=== PATIENT | female | born 1975 | race Caucasian/White ===

== ENCOUNTER 2016-12-02 16:07 | Emergency (ER) | payer OTHER ==
[~2016-12-02] VITALS: Ht 160 cm; Wt 87.6 kg
[~2016-12-02 16:07] MED LIST: ADVAIR HFA120 INHAL1 IH; ADVAIR HFA120 INHALA IH; ALEVE220 M2 PO; ALPRAZOLAM1 MG PO; AMOXICILLIN875 MG PO; AUGMENTIN875 MG PO; BACTRIM,SEPT1 TABLET PO; BENZONATATE100 MG PO; CEPACOL SORE T1 EAC9 MM; CYCLOBENZAPRINE10 MG PO; EFFEXOR; EFFEXOR XR150 MG PO; ENDOCET 5-3251 EACH PO; FLEXERIL10 MG PO; FLEXERIL5 MG PO; FLONASE16 G1 BOTH NARES; GABAPENTIN100 MG PO; GEODON40 MG PO; GUAIFENESIN600 M1 PO; HYDROCODON-ACE1 EAC7 PO; IBUPROFEN800 MG PO; INDOCIN25 MG PO; KEFLEX500 MG PO; KLONOPIN0.5 MG PO; KLONOPIN1 M1 PO; LAMICTAL100 MG PO; LAMICTAL200 MG PO; LAMOTRIGINE100 MG PO; LEVAQUIN500 MG PO; LEVOFLOXACIN750 MG PO; LIDOCAINE20 MG/1 M5 PO; LITHIUM CARBON300 MG PO; LITHIUM CARBON450 MG PO; LITHIUM CARBON600 MG PO; MACROBID100 MG PO; MOBIC15 MG PO; MORPHINE SULFAT15 MG PO; MS CONTIN,ORAMO15 M1 PO; NAPROSYN500 MG PO; NEURONTIN100 MG PO; NEURONTIN300 MG PO; NEURONTIN600 MG PO; NEXIUM40 M1 PO; NEXIUM40 MG PO; NICOTINE PATCH1 EAC2 TD; NORCO 5/3251 TABLET PO; OMEPRAZOLE20 MG PO; OMEPRAZOLE40 M1 PO; PRAVACHOL40 MG PO; PRAVASTATIN SOD40 MG PO; PREDNISONE10 MG PO; PREDNISONE20 MG PO; PREDNISONE5 MG PO; PROAIR HFA8.5 GM IH; PROVENTIL,2.5 MG/3 M IH; QUETIAPINE FUMA50 MG PO; SEROQUEL100 MG PO; SEROQUEL300 MG PO; SEROQUEL50 MG PO; SPIRIVA RESPIMAT4 G1 IH; SPIRIVA RESPIMAT4 GM IH; SYMBICORT60 INHALA1 IH; TESSALON200 MG PO; TOPAMAX50 MG PO; TRAMADOL HCL50 MG PO; ULTRAM50 MG PO; VENLAFAXINE HC150 M1 PO; VENTOLIN HFA18 GM IH; VICODIN 5-3001 EACH PO; XANAX0.5 MG PO; XANAX1 MG PO; XANAX2 MG PO; ZIPRASIDONE HCL40 MG PO; prevacid
[2016-12-02 17:04] LABS: HEMATOCRIT 40.5 % (36.0-46.0); MCH 30.1 PG (29.0-34.0); MCHC 34.1 G/DL (30.0-36.0); MCV 88.2 FL (83-99); MEAN PLAT.VOLUME 9.9 uM^3 (9.5-12.4); PLATELET COUNT 357 K/uL (156-360); RBC DIS.WIDTH-CV 14.1 % (11.8-14.6); RBC DIS.WIDTH-SD 45.3 % (39-53); RED BLOOD COUNT 4.59 M/uL (3.80-5.20); WHITE BLOOD COUNT 12.5 K/uL (4.1-10.2)
[2016-12-02 17:13] LABS: CHLORIDE 111 mEq/L (99-109); POTASSIUM 3.6 mEq/L (3.7-5.4); SODIUM 137 mEq/L (136-147)
[2016-12-02 17:14] LABS: GLUCOSE 81 mg/dL (70-99)
[2016-12-02 17:16] LABS: ANION GAP 12 MEQ/L (2-14)
[2016-12-02 17:18] LABS: GFR ESTIMATE (CALCULATED) > 59 mL/min/
[2016-12-02 17:19] LABS: UREA NITROGEN (BUN) 13 mg/dL (9-23)
[2016-12-02 17:25] LABS: TROP-I INTERPRETATION NEGATIVE; TROPONIN-I < 0.01 ng/mL (0.0-0.30)
[2016-12-02 17:40] LABS: D-DIMER ELISA 0.42 mg/L FEU (< 0.57)
[2016-12-02] MEDS ORDERED: PREDNISONE50 MG PO (18:44)
[2016-12-02 18:54] VITALS: BP 117/88
== END 2016-12-02 18:54 | disposition home or self-care (01) ==
LOC: EME 16:07
PROVIDERS: Emergency Medicine
DX: J44.1 Chronic obstructive pulmonary disease with (acute) exacerbation (principal); F41.1 Generalized anxiety disorder; E78.5 Hyperlipidemia, unspecified; Z99.81 Dependence on supplemental oxygen; Z87.891 Personal history of nicotine dependence
CPT/HCPCS: 71020; 80048; 84484; 85027; 85379; 93005; 94640; 99281; 99284; J7512

== ENCOUNTER 2017-01-03 15:42 | Inpatient (IN) | payer OTHER ==
[~2017-01-03] VITALS: Ht 160 cm; Wt 89.4 kg
[~2017-01-03 15:42] MED LIST changes: +PREDNISONE50 MG PO
[2017-01-03 18:31] LABS: HEMATOCRIT 39.7 % (36.0-46.0); MCH 29.6 PG (29.0-34.0); MCHC 32.2 G/DL (30.0-36.0); MCV 91.9 FL (83-99); PLATELET COUNT 282 K/uL (156-360); RBC DIS.WIDTH-CV 13.9 % (11.8-14.6); RBC DIS.WIDTH-SD 45.4 % (39-53); RED BLOOD COUNT 4.32 M/uL (3.80-5.20)
[2017-01-03 18:35] LABS: WHITE BLOOD COUNT 22.6 K/uL (4.1-10.2)
[2017-01-03 18:40] LABS: CHLORIDE 108 mEq/L (99-109); POTASSIUM 3.2 mEq/L (3.7-5.4); SODIUM 140 mEq/L (136-147)
[2017-01-03 18:42] LABS: GLUCOSE 125 mg/dL (70-99)
[2017-01-03 18:43] LABS: ANION GAP 12 MEQ/L (2-14)
[2017-01-03 18:46] LABS: GFR ESTIMATE (CALCULATED) > 59 mL/min/
[2017-01-03 18:47] LABS: UREA NITROGEN (BUN) 13 mg/dL (9-23)
[2017-01-03] MEDS ORDERED: LITHIUM CARBON300 MG PO (21:56)
[2017-01-03] MEDS ORDERED: VENTOLIN HFA18 GM IH (21:59)
[2017-01-03] MEDS ORDERED: COLACE100 MG PO (22:02)
[2017-01-03] MEDS ORDERED: PREDNISONE50 MG PO (22:04)
[2017-01-03] MEDS ORDERED: ZANTAC300 MG PO (22:07)
[2017-01-03 22:14] LABS: BASE EXCESS -2.8 mEq/L (-3 to +3); BICARBONATE 19.1 mEq/L (22-26); CARBOXY HGB 1.9 % (0-5); COMMENTS - BLOOD GASES A+C+; DEVICE RA; METHEMOGLOBIN 1.1 % (0-1.5); PCO2 25 mm Hg (35-45); PO2 81 mm Hg (80-100); SITE LR; TOTAL RESP RATE 20 resp/min; pH 7.49 (7.35-7.45)
[2017-01-04 00:23] VITALS: BP 136/82
[2017-01-04 07:36] VITALS: BP 137/91
[2017-01-04 08:07] LABS: HEMATOCRIT 38.8 % (36.0-46.0); MCH 30.6 PG (29.0-34.0); MCHC 33.2 G/DL (30.0-36.0); MCV 91.9 FL (83-99); MEAN PLAT.VOLUME 10.5 uM^3 (9.5-12.4); PLATELET COUNT 315 K/uL (156-360); RED BLOOD COUNT 4.22 M/uL (3.80-5.20)
[2017-01-04 08:32] LABS: ANION GAP 9 MEQ/L (2-14); CHLORIDE 107 MEQ/L (99-109); GFR ESTIMATE (CALCULATED) > 59 mL/min/; GLUCOSE 158 mg/dL (70-99); SAMPLE HEMOLYSIS CHECK 2; SAMPLE ICTERIC CHECK 0; SAMPLE LIPEMIA CHECK 0; SODIUM 135 MEQ/L (136-147); UREA NITROGEN (BUN) 13 mg/dL (9-23)
[2017-01-04 08:33] LABS: POTASSIUM ND MEQ/L (3.7-5.4)
[2017-01-04 11:41] LABS: POTASSIUM 5.5 MEQ/L (3.7-5.4)
[2017-01-04 11:49] VITALS: BP 117/64
[2017-01-04 14:26] LABS: ANION GAP 7 MEQ/L (2-14); CHLORIDE 109 MEQ/L (99-109); GFR ESTIMATE (CALCULATED) > 59 mL/min/; GLUCOSE 140 mg/dL (70-99); POTASSIUM 5.2 MEQ/L (3.7-5.4); SAMPLE HEMOLYSIS CHECK 0; SAMPLE ICTERIC CHECK 0; SAMPLE LIPEMIA CHECK 0; SODIUM 136 MEQ/L (136-147); UREA NITROGEN (BUN) 14 mg/dL (9-23)
[2017-01-04 15:36] VITALS: BP 107/58
[2017-01-04 19:42] VITALS: BP 131/84
[2017-01-05 00:42] VITALS: BP 121/69
[2017-01-05 03:58] VITALS: BP 125/74
[2017-01-05 08:25] VITALS: BP 107/59
[2017-01-05 08:35] LABS: HEMATOCRIT 38.2 % (36.0-46.0); MCHC 31.7 G/DL (30.0-36.0); MCV 94.6 FL (83-99); MEAN PLAT.VOLUME 11.2 uM^3 (9.5-12.4); PLATELET COUNT 317 K/uL (156-360); RBC DIS.WIDTH-CV 14.7 % (11.8-14.6); RBC DIS.WIDTH-SD 51.1 % (39-53); RED BLOOD COUNT 4.04 M/uL (3.80-5.20); WHITE BLOOD COUNT 16.2 K/uL (4.1-10.2)
[2017-01-05 08:56] LABS: ANION GAP 8 MEQ/L (2-14); CHLORIDE 108 MEQ/L (99-109); GFR ESTIMATE (CALCULATED) > 59 mL/min/; GLUCOSE 130 mg/dL (70-99); POTASSIUM 5.4 MEQ/L (3.7-5.4); SAMPLE HEMOLYSIS CHECK 0; SAMPLE ICTERIC CHECK 0; SAMPLE LIPEMIA CHECK 0; SODIUM 138 MEQ/L (136-147); UREA NITROGEN (BUN) 21 mg/dL (9-23)
[2017-01-05 12:20] VITALS: BP 123/66
[2017-01-05 16:00] VITALS: BP 123/67
[2017-01-05 21:55] VITALS: BP 129/66
[2017-01-06] VITALS: BP 119/68
[2017-01-06 04:00] VITALS: BP 129/65
[2017-01-06 07:45] VITALS: BP 110/65
[2017-01-06 08:06] LABS: ANION GAP 5 MEQ/L (2-14); CHLORIDE 108 MEQ/L (99-109); POTASSIUM 4.4 MEQ/L (3.7-5.4); SAMPLE HEMOLYSIS CHECK 0; SAMPLE ICTERIC CHECK 0; SAMPLE LIPEMIA CHECK 0; SODIUM 140 MEQ/L (136-147)
[2017-01-06 08:26] LABS: GFR ESTIMATE (CALCULATED) 53 mL/min/; UREA NITROGEN (BUN) 31 mg/dL (9-23)
[2017-01-06 08:32] LABS: GLUCOSE 87 mg/dL (70-99)
[2017-01-06 15:03] VITALS: BP 121/73
[2017-01-06 20:00] VITALS: BP 122/62
[2017-01-07] VITALS: BP 108/58
[2017-01-07 03:46] VITALS: BP 112/67
[2017-01-07 08:43] VITALS: BP 136/89
[2017-01-07] MEDS ORDERED: PERCOCET 5/31 TABLET PO (11:45)
[2017-01-07] MEDS ORDERED: VALACYCLOVIR (11:47)
[2017-01-07 12:35] VITALS: BP 138/87
[2017-01-07 15:00] VITALS: BP 146/95
[2017-01-08] VITALS: BP 109/72
[2017-01-08 04:00] VITALS: BP 117/75
[2017-01-08 08:16] VITALS: BP 161/95
[2017-01-08 10:49] LABS: HEMATOCRIT 41.4 % (36.0-46.0); MCH 29.1 PG (29.0-34.0); MCHC 31.2 G/DL (30.0-36.0); MCV 93.5 FL (83-99); MEAN PLAT.VOLUME 10.8 uM^3 (9.5-12.4); PLATELET COUNT 271 K/uL (156-360); RBC DIS.WIDTH-CV 13.6 % (11.8-14.6); RED BLOOD COUNT 4.43 M/uL (3.80-5.20); WHITE BLOOD COUNT 12.5 K/uL (4.1-10.2)
[2017-01-08 11:12] LABS: ANION GAP 10 MEQ/L (2-14); CHLORIDE 104 MEQ/L (99-109); GFR ESTIMATE (CALCULATED) > 59 mL/min/; GLUCOSE 122 mg/dL (70-99); POTASSIUM 3.6 MEQ/L (3.7-5.4); SAMPLE HEMOLYSIS CHECK 0; SAMPLE ICTERIC CHECK 0; SAMPLE LIPEMIA CHECK 0; SODIUM 138 MEQ/L (136-147); UREA NITROGEN (BUN) 19 mg/dL (9-23)
[2017-01-08 12:13] VITALS: BP 122/79
[2017-01-08] MEDS ORDERED: SPIRIVA RESPIMAT4 GM IH (13:32)
[2017-01-08] MEDS ORDERED: LEVOFLOXACIN750 MG PO (13:32)
[2017-01-08] MEDS ORDERED: ADVAIR HFA120 INHALA IH (13:32)
[2017-01-08] MEDS ORDERED: PREDNISONE20 MG PO (13:32)
[2017-01-08] MEDS ORDERED: CONSTULOSE10 GM/15 M PO (13:32)
[2017-01-08] MEDS ORDERED: NICOTINE PATCH1 EAC2 TD (14:09)
[2017-01-08] MEDS ORDERED: PROVENTIL,2.5 MG/3 M IH (14:09)
== END 2017-01-08 15:35 | disposition home health service (06) | DRG 192 ==
LOC: EME 15:42 → EDOF 20:25 → 5SOUTH 01-04 00:08
PROVIDERS: Hospitalist; Nurse Practitioner Family; Physician Assistant; Physician Assistant Medical
DX: J44.1 Chronic obstructive pulmonary disease with (acute) exacerbation (principal); J44.0 Chronic obstructive pulmonary disease with (acute) lower respiratory infection; J20.9 Acute bronchitis, unspecified; R09.02 Hypoxemia; E87.6 Hypokalemia; I10 Essential (primary) hypertension; E78.5 Hyperlipidemia, unspecified; K21.9 Gastro-esophageal reflux disease without esophagitis; F20.9 Schizophrenia, unspecified; F31.9 Bipolar disorder, unspecified; F41.9 Anxiety disorder, unspecified; G89.4 Chronic pain syndrome; K59.00 Constipation, unspecified; F17.210 Nicotine dependence, cigarettes, uncomplicated; E66.9 Obesity, unspecified; Z68.34 Body mass index [BMI] 34.0-34.9, adult; Z98.1 Arthrodesis status
CPT/HCPCS: 36600; 71010; 71020; 71275; 74000; 80048; 80048 91; 81003; 82803; 84999; 85027; 87040; 94640; 94640 76; 94644; 94760; 94799; 99202; 99281; 99285; G0378; J1644; J1956; J2930; J3475; J7512

== ENCOUNTER 2017-02-08 20:59 | Emergency (ER) | payer OTHER ==
[~2017-02-08] VITALS: Ht 160 cm; Wt 92.6 kg
[~2017-02-08 20:59] MED LIST changes: +COLACE100 MG PO; +CONSTULOSE10 GM/15 M PO; +PERCOCET 5/31 TABLET PO; +VALACYCLOVIR; +ZANTAC300 MG PO
[2017-02-08 21:18] LABS: POINT-OF-CARE METER ID UU13113778; POINT-OF-CARE USER ID 611181312
[2017-02-08 21:30] LABS: MCHC 31.9 G/DL (30.0-36.0); MCV 90.7 FL (83-99); MEAN PLAT.VOLUME 10.4 uM^3 (9.5-12.4); PLATELET COUNT 275 K/uL (156-360); RBC DIS.WIDTH-CV 13.2 % (11.8-14.6); RBC DIS.WIDTH-SD 43.8 % (39-53); RED BLOOD COUNT 3.97 M/uL (3.80-5.20); WHITE BLOOD COUNT 11.2 K/uL (4.1-10.2)
[2017-02-08 21:41] LABS: CHLORIDE 108 mEq/L (99-109); SODIUM 138 mEq/L (136-147)
[2017-02-08 21:43] LABS: GLUCOSE 119 mg/dL (70-99)
[2017-02-08 21:44] LABS: ANION GAP 8 MEQ/L (2-14)
[2017-02-08 21:47] LABS: GFR ESTIMATE (CALCULATED) 59 mL/min/; UREA NITROGEN (BUN) 22 mg/dL (9-23)
[2017-02-09] MEDS ORDERED: ROBITUSSIN AC,T10 ML PO (00:29)
[2017-02-09 00:47] VITALS: BP 106/60
== END 2017-02-09 00:48 | disposition home or self-care (01) ==
LOC: EME 20:59
DX: J40 Bronchitis, not specified as acute or chronic (principal); J98.01 Acute bronchospasm; J44.9 Chronic obstructive pulmonary disease, unspecified; E78.5 Hyperlipidemia, unspecified; Z79.891 Long term (current) use of opiate analgesic; F17.200 Nicotine dependence, unspecified, uncomplicated
CPT/HCPCS: 71020; 71275; 80048; 82948; 85027; 94640; 99281; 99284; J7030

== ENCOUNTER 2017-02-25 01:17 | Emergency (ER) | payer OTHER ==
[~2017-02-25] VITALS: Ht 160 cm; Wt 84.5 kg
[~2017-02-25 01:17] MED LIST changes: +ROBITUSSIN AC,T10 ML PO
[2017-02-25 01:54] LABS: HEMATOCRIT 42.8 % (36.0-46.0); MCV 90.7 FL (83-99); RBC DIS.WIDTH-CV 13.7 % (11.8-14.6); RBC DIS.WIDTH-SD 45.7 % (39-53); RED BLOOD COUNT 4.72 M/uL (3.80-5.20); WHITE BLOOD COUNT 11.2 K/uL (4.1-10.2)
[2017-02-25 01:55] LABS: PLATELET COUNT 419 K/uL (156-360)
[2017-02-25 01:59] LABS: CHLORIDE 107 mEq/L (99-109); POTASSIUM 3.5 mEq/L (3.7-5.4); SODIUM 140 mEq/L (136-147)
[2017-02-25 02:01] LABS: GLUCOSE 113 mg/dL (70-99)
[2017-02-25 02:02] LABS: ANION GAP 11 MEQ/L (2-14)
[2017-02-25 02:03] LABS: TOTAL BILIRUBIN 0.4 mg/dL (0.0-1.0)
[2017-02-25 02:04] LABS: ALKALINE PHOSPHATASE 104 IU/L (3-129)
[2017-02-25 02:05] LABS: GFR ESTIMATE (CALCULATED) 59 mL/min/
[2017-02-25 02:06] LABS: UREA NITROGEN (BUN) 13 mg/dL (9-23)
[2017-02-25 02:13] LABS: QUANTITATIVE HCG < 4.0 MIU/ML
[2017-02-25 02:31] LABS: LIPASE 19 U/L (1.0-51.0)
[2017-02-25] MEDS ORDERED: ZOFRAN ODT4 MG PO (03:07)
[2017-02-25 04:04] VITALS: BP 132/96
== END 2017-02-25 04:19 | disposition home or self-care (01) ==
LOC: EME 01:17
DX: R10.13 Epigastric pain (principal); R11.2 Nausea with vomiting, unspecified; F41.9 Anxiety disorder, unspecified; Z87.11 Personal history of peptic ulcer disease; J45.909 Unspecified asthma, uncomplicated; K21.9 Gastro-esophageal reflux disease without esophagitis; E78.5 Hyperlipidemia, unspecified; Z91.018 Allergy to other foods; F17.200 Nicotine dependence, unspecified, uncomplicated; Z98.1 Arthrodesis status
CPT/HCPCS: 74177; 80053; 80178; 81003; 83690; 84702; 85027; 99281; 99284; J2060; J2270; J2405; J7030

== ENCOUNTER 2017-10-14 15:21 | Inpatient (IN) | payer OTHER ==
[~2017-10-14] VITALS: Ht 162.6 cm; Wt 96.7 kg
[~2017-10-14 15:21] MED LIST changes: +ZOFRAN ODT4 MG PO
[2017-10-14 16:28] LABS: EOSINOPHIL (%) 0.1 % (0-5); HEMATOCRIT 42.5 % (36.0-46.0); IMMATURE GRANULOCYTE (%) 1.1 % (0.0-0.7); IMMATURE GRANULOCYTE COUNT 0.2 K/uL; LYMPHOCYTE COUNT 1.1 K/uL (1.0-2.8); MCH 28.8 PG (29.0-34.0); MCHC 28.2 G/DL (30.0-36.0); MCV 101.9 FL (83-99); MEAN PLAT.VOLUME 10.7 uM^3 (9.5-12.4); MONOCYTE (%) 7.3 % (3-12); MONOCYTE COUNT 1.5 K/uL (0-0.8); NEUTROPHIL (%) 85.7 % (45-76); NRBC (%) 0.2 /100 WBC (0-0); PLATELET COUNT 313 K/uL (156-360); RBC DIS.WIDTH-CV 14.3 % (11.8-14.6); RBC DIS.WIDTH-SD 54.4 % (39-53); RED BLOOD COUNT 4.17 M/uL (3.80-5.20); WHITE BLOOD COUNT 19.8 K/uL (4.1-10.2)
[2017-10-14 16:37] LABS: CHLORIDE 101 mEq/L (99-109); SODIUM 135 mEq/L (136-147)
[2017-10-14 16:39] LABS: GLUCOSE 123 mg/dL (70-99)
[2017-10-14 16:40] LABS: ANION GAP 17 MEQ/L (2-14)
[2017-10-14 16:42] LABS: GFR ESTIMATE (CALCULATED) 23 mL/min/
[2017-10-14 16:43] LABS: UREA NITROGEN (BUN) 29 mg/dL (9-23)
[2017-10-14 16:46] LABS: POTASSIUM 6.4 mEq/L (3.7-5.4)
[2017-10-14 18:10] LABS: TOTAL BILIRUBIN 0.2 mg/dL (0.0-1.0)
[2017-10-14 18:11] LABS: ALKALINE PHOSPHATASE 110 IU/L (3-129)
[2017-10-14 18:14] LABS: DIRECT BILIRUBIN 0.1 mg/dL (0.0-0.3)
[2017-10-14 18:16] LABS: CREATINE KINASE 1256 IU/L (1-294)
[2017-10-14 18:19] LABS: POINT-OF-CARE METER ID UU13113702
[2017-10-14 18:30] LABS: ADD MIUA? YES; BILIRUBIN NEGATIVE; BLOOD NEGATIVE; COLOR YELLOW ((YELLOW)); GLUCOSE (STRIP) NEGATIVE; KETONES NEGATIVE; LEUKOCYTES TRACE; NITRITE POSITIVE; PROTEIN (STRIP) 30; SPECIFIC GRAVITY 1.014 (1.000-1.030); UROBILINOGEN 0.2 MG/DL (0.2-1.0)
[2017-10-14 18:33] LABS: BASE EXCESS -1.5 mEq/L (-3 to +3); BICARBONATE 27.7 mEq/L (22-26); CARBOXY HGB 4.4 % (0-5); COMMENTS - BLOOD GASES A+C+; DEVICE NC; O2 FLOW 4 L/MIN; PCO2 71 mm Hg (35-45); PO2 79 mm Hg (80-100); SITE LR
[2017-10-14 18:33] LABS: TROP-I INTERPRETATION NEGATIVE; TROPONIN-I 0.08 ng/mL (0.0-0.30)
[2017-10-14 18:38] LABS: AMPHETAMINE NEGATIVE (500 ng/mL); BARBITURATES NEGATIVE (200 ng/mL); BENZODIAZEPINES NEGATIVE (150 ng/mL); COCAINE NEGATIVE (150 ng/mL); INTERNAL CONTROLS VALID? YES; METHADONE NEGATIVE (200 ng/mL); METHAMPHETAMINE NEGATIVE (500 ng/mL); OPIATES (MORPHINE) PRESUMPTIVE POSITIVE (100 ng/mL); OXYCODONE PRESUMPTIVE POSITIVE (100 ng/mL); PHENCYCLIDINE NEGATIVE (25 ng/mL); PROPOXYPHENE NEGATIVE (300 ng/mL); THC CANNABINOIDS PRESUMPTIVE POSITIVE (50 ng/mL); TRICYCLIC ANTIDEPRESSANTS PRESUMPTIVE POSITIVE (300 ng/mL)
[2017-10-14 18:39] LABS: ADD MEDTOX COMMENT Y
[2017-10-14 18:47] LABS: SALICYLATE < 5.0 MG/DL (15-30)
[2017-10-14 18:53] LABS: AMORPHOUS URATES CRYSTALS 1+; BACTERIA 1+ /HPF; CRYSTALS PRESENT; EPITHELIAL CELLS 1+ /HPF; MUCUS NONE SEEN /LPF; RED BLOOD CELLS NONE SEEN /HPF (0-5); UCUL ADDED? YES
[2017-10-14] MEDS ORDERED: LITHIUM CARBON300 MG PO (19:27)
[2017-10-14] MEDS ORDERED: CHANTIX1 MG PO (19:31)
[2017-10-14] MEDS ORDERED: DICLOFENAC SODI75 MG PO (19:31)
[2017-10-14] MEDS ORDERED: BENZONATATE200 MG PO (19:32)
[2017-10-14] MEDS ORDERED: GABAPENTIN300 MG PO (19:33)
[2017-10-14] MEDS ORDERED: BACTRIM,SEPT1 TABLET PO (19:35)
[2017-10-14] MEDS ORDERED: PREDNISONE20 MG PO (19:37)
[2017-10-14] MEDS ORDERED: LEVAQUIN750 MG PO (19:40)
[2017-10-14] MEDS ORDERED: ZANAFLEX4 M1 PO (19:45)
[2017-10-14] MEDS ORDERED: CLONIDINE HCL0.1 MG PO (19:46)
[2017-10-14] MEDS ORDERED: CELEXA40 MG PO (19:47)
[2017-10-14] MEDS ORDERED: PROMETHAZINE HC25 M1 PO (19:50)
[2017-10-14 22:30] VITALS: BP 140/92
[2017-10-14 22:32] VITALS: BP 140/92
[2017-10-14 23:00] VITALS: BP 134/96
[2017-10-14 23:55] LABS: METH RESISTANT S AUREUS PCR POSITIVE (NEGATIVE)
[2017-10-15] VITALS (11 sets, daily range): BP systolic 118–172; BP diastolic 80–121
[2017-10-15 00:04] LABS: PROBE CHECK PASS
[2017-10-15 00:41] LABS: CHLORIDE 108 mEq/L (99-109); SODIUM 141 mEq/L (136-147)
[2017-10-15 00:43] LABS: GLUCOSE 99 mg/dL (70-99)
[2017-10-15 00:44] LABS: ANION GAP 8 MEQ/L (2-14)
[2017-10-15 00:47] LABS: UREA NITROGEN (BUN) 24 mg/dL (9-23)
[2017-10-15 01:38] LABS: CREATINE KINASE 1991 IU/L (1-294); GFR ESTIMATE (CALCULATED) 48 mL/min/; POTASSIUM 4.4 mEq/L (3.7-5.4)
[2017-10-15 10:10] LABS: CK-MB 22.6 ng/mL (0.0-4.9)
[2017-10-15 10:11] LABS: ANION GAP 6 MEQ/L (2-14); CHLORIDE 113 MEQ/L (99-109); GFR ESTIMATE (CALCULATED) > 59 mL/min/; GLUCOSE 123 mg/dL (70-99); SAMPLE HEMOLYSIS CHECK 0; SAMPLE ICTERIC CHECK 0; SAMPLE LIPEMIA CHECK 0; SODIUM 142 MEQ/L (136-147); TOTAL CK 1502 IU/L (1-294); UREA NITROGEN (BUN) 20 mg/dL (9-23)
[2017-10-15 10:12] LABS: CREATINE KINASE 1502 IU/L (1-294)
[2017-10-16 06:17] LABS: EOSINOPHIL (%) 1.6 % (0-5); EOSINOPHIL COUNT 0.2 K/uL (0-0.3); HEMATOCRIT 32.5 % (36.0-46.0); IMMATURE GRANULOCYTE (%) 0.6 % (0.0-0.7); IMMATURE GRANULOCYTE COUNT 0.1 K/uL; INSTRUMENT ABS NEUTROPHIL CT 9.9 K/uL; LYMPHOCYTE COUNT 2.4 K/uL (1.0-2.8); MCH 29.7 PG (29.0-34.0); MCHC 31.7 G/DL (30.0-36.0); MCV 93.7 FL (83-99); MEAN PLAT.VOLUME 11.1 uM^3 (9.5-12.4); MONOCYTE (%) 10.2 % (3-12); MONOCYTE COUNT 1.4 K/uL (0-0.8); NEUTROPHIL (%) 70.4 % (45-76); NEUTROPHIL COUNT 9.9 K/uL (1.8-6.4); PLATELET COUNT 253 K/uL (156-360); RBC DIS.WIDTH-CV 14.8 % (11.8-14.6); RED BLOOD COUNT 3.47 M/uL (3.80-5.20)
[2017-10-16 06:21] LABS: ANION GAP 7 MEQ/L (2-14); CHLORIDE 115 MEQ/L (99-109); GFR ESTIMATE (CALCULATED) > 59 mL/min/; POTASSIUM 3.5 MEQ/L (3.7-5.4); SAMPLE HEMOLYSIS CHECK 0; SAMPLE ICTERIC CHECK 0; SAMPLE LIPEMIA CHECK 0; SODIUM 145 MEQ/L (136-147); UREA NITROGEN (BUN) 13 mg/dL (9-23)
[2017-10-16 06:47] LABS: GLUCOSE 87 mg/dL (70-99)
[2017-10-16 07:42] LABS: CREATINE KINASE 886 IU/L (1-294)
[2017-10-16 08:01] VITALS: BP 127/76
[2017-10-16 15:18] VITALS: BP 123/75
[2017-10-16 23:40] VITALS: BP 125/70
[2017-10-17 06:06] LABS: BASOPHIL COUNT 0.1 K/uL (0-0.1); EOSINOPHIL (%) 3.1 % (0-5); EOSINOPHIL COUNT 0.4 K/uL (0-0.3); HEMATOCRIT 31.8 % (36.0-46.0); IMMATURE GRANULOCYTE (%) 0.4 % (0.0-0.7); IMMATURE GRANULOCYTE COUNT 0.1 K/uL; INSTRUMENT ABS NEUTROPHIL CT 7.8 K/uL; MCH 29.1 PG (29.0-34.0); MCHC 31.1 G/DL (30.0-36.0); MCV 93.5 FL (83-99); MEAN PLAT.VOLUME 10.6 uM^3 (9.5-12.4); MONOCYTE (%) 11.2 % (3-12); MONOCYTE COUNT 1.4 K/uL (0-0.8); NEUTROPHIL COUNT 7.8 K/uL (1.8-6.4); PLATELET COUNT 256 K/uL (156-360); RBC DIS.WIDTH-CV 14.8 % (11.8-14.6); RBC DIS.WIDTH-SD 50.9 % (39-53); WHITE BLOOD COUNT 12.7 K/uL (4.1-10.2)
[2017-10-17 06:24] LABS: ALKALINE PHOSPHATASE 83 IU/L (3-129); ANION GAP 6 MEQ/L (2-14); CHLORIDE 118 MEQ/L (99-109); GFR ESTIMATE (CALCULATED) > 59 mL/min/; GLUCOSE 82 mg/dL (70-99); POTASSIUM 4.1 MEQ/L (3.7-5.4); SAMPLE HEMOLYSIS CHECK 0; SAMPLE ICTERIC CHECK 0; SAMPLE LIPEMIA CHECK 0; SODIUM 146 MEQ/L (136-147); TOTAL BILIRUBIN 0.3 MG/DL (0.0-1.0); UREA NITROGEN (BUN) 8 mg/dL (9-23)
[2017-10-17 07:23] VITALS: BP 137/94
[2017-10-17 15:00] VITALS: BP 132/78
[2017-10-17 23:52] VITALS: BP 148/98
[2017-10-18 06:33] LABS: HDL CHOLESTEROL 37 MG/DL (Desirable>=50); LDL CHOLESTEROL 101 mg/dL (Desirable<100); NON-HDL CHOLESTEROL 131 mg/dL (Desirable<160); TOTAL CHOLESTEROL 168 mg/dL (Desirable<200); TRIGLYCERIDES 151 MG/DL (Normal: <150)
[2017-10-18 06:49] LABS: Estimated Average Glucose 123 mg/dL (70-123); HEMOGLOBIN A1c (GLYCOHEMOGLOB) 5.9 % HGB (Below 5.7)
[2017-10-18 07:58] VITALS: BP 124/73
[2017-10-18 15:12] VITALS: BP 132/91
[2017-10-18 22:25] VITALS: BP 131/85
[2017-10-19 06:45] VITALS: BP 129/78
[2017-10-19 16:33] VITALS: BP 140/78
[2017-10-19 23:44] VITALS: BP 106/58
[2017-10-20 06:40] VITALS: BP 114/69
[2017-10-20] MEDS ORDERED: AMOXICILLIN500 MG PO (11:38)
[2017-10-20] MEDS ORDERED: CLONIDINE HCL0.1 MG PO (11:38)
[2017-10-20] MEDS ORDERED: NICOTINE PATCH1 EAC2 TD (11:38)
[2017-10-20] MEDS ORDERED: EFFEXOR XR150 MG PO (11:38)
== END 2017-10-20 13:18 | disposition home or self-care (01) | DRG 189 ==
LOC: EME 15:21 → EDOF 21:09 → 4WEST 21:09 → ENRESERV 21:10 → 4WEST 22:20 → ENRESERV 10-15 18:10 → 5EAST 10-15 20:33
PROVIDERS: Emergency Medicine; Hospitalist; Internal Medicine; Internal Medicine Critical Care Medicine
DX: J96.02 Acute respiratory failure with hypercapnia (principal); N39.0 Urinary tract infection, site not specified; N17.9 Acute kidney failure, unspecified; F20.9 Schizophrenia, unspecified; F31.9 Bipolar disorder, unspecified; E66.01 Morbid (severe) obesity due to excess calories; M62.82 Rhabdomyolysis; I10 Essential (primary) hypertension; K27.9 Peptic ulcer, site unspecified, unspecified as acute or chronic, without hemorrhage or perforation; J44.9 Chronic obstructive pulmonary disease, unspecified; G89.4 Chronic pain syndrome; F17.210 Nicotine dependence, cigarettes, uncomplicated; G93.41 Metabolic encephalopathy; E87.5 Hyperkalemia; E87.2 Acidosis; F12.10 Cannabis abuse, uncomplicated; B95.2 Enterococcus as the cause of diseases classified elsewhere; M21.372 Foot drop, left foot; R73.03 Prediabetes; I49.8 Other specified cardiac arrhythmias; F43.10 Post-traumatic stress disorder, unspecified; F22 Delusional disorders; E86.0 Dehydration; T40.601A Poisoning by unspecified narcotics, accidental (unintentional), initial encounter; K21.9 Gastro-esophageal reflux disease without esophagitis; Z90.49 Acquired absence of other specified parts of digestive tract; Z98.1 Arthrodesis status; Z91.013 Allergy to seafood; E78.5 Hyperlipidemia, unspecified; Z87.01 Personal history of pneumonia (recurrent); Z87.11 Personal history of peptic ulcer disease; Z87.19 Personal history of other diseases of the digestive system
CPT/HCPCS: 36600; 70450; 70551; 71010; 72148; 73590; 73610; 80048; 80048 91; 80053; 80061; 80076; 80178; 81003; 82140; 82550; 82550 91; 82553; 82803; 82948; 83036; 83605; 83930; 84484; 84999; 85025; 87040; 87077; 87086; 87186; 87641; 90686; 93005; 97530 GP; 99281; 99285; G0480; J0295; J0610; J0696; J1630; J1650; J2060; J7030; J7050; J7512

== ENCOUNTER 2018-06-30 14:51 | Inpatient (IN) | payer OTHER ==
[~2018-06-30] VITALS: Ht 160 cm; Wt 90.1 kg
[~2018-06-30 14:51] MED LIST changes: +AMOXICILLIN500 MG PO; +BENZONATATE200 MG PO; +CELEXA40 MG PO; +CHANTIX1 MG PO; +CLONIDINE HCL0.1 MG PO; +DICLOFENAC SODI75 MG PO; +GABAPENTIN300 MG PO; +LEVAQUIN750 MG PO; +LITHIUM CARBON300 M1 PO; +PROMETHAZINE HC25 M1 PO; +ZANAFLEX4 M1 PO
[2018-06-30 15:49] LABS: BASOPHIL (%) 0.2 % (0-1); BASOPHIL COUNT 0.1 K/uL (0-0.1); EOSINOPHIL (%) 0 % (0-5); HEMATOCRIT 41.2 % (36.0-46.0); HEMOGLOBIN 13.2 G/DL (11.9-15.5); LYMPHOCYTE (%) 9.5 % (15-42); LYMPHOCYTE COUNT 2.2 K/uL (1.0-2.8); MCH 29.1 PG (29.0-34.0); MCV 90.9 FL (83-99); MONOCYTE COUNT 2.3 K/uL (0-0.8); NEUTROPHIL (%) 79.3 % (45-76); NEUTROPHIL COUNT 18.3 K/uL (1.8-6.4); NRBC (%) 0.1 /100 WBC (0-0); PLATELET COUNT 346 K/uL (156-360); RBC DIS.WIDTH-SD 49.8 % (39-53); RED BLOOD COUNT 4.53 M/uL (3.80-5.20)
[2018-06-30 16:04] LABS: ALBUMIN 4.2 g/dL (3.2-4.8); CHLORIDE 102 mEq/L (99-109); SODIUM 137 mEq/L (136-147)
[2018-06-30 16:06] LABS: GLUCOSE 151 mg/dL (70-99); TOTAL PROTEIN 8.7 g/dL (6.4-8.3)
[2018-06-30 16:08] LABS: TOTAL BILIRUBIN 0.4 mg/dL (0.0-1.0)
[2018-06-30 16:09] LABS: SERUM ETHYL ALCOHOL < 10 mg/dL
[2018-06-30 16:10] LABS: ALKALINE PHOSPHATASE 107 IU/L (3-129); GFR ESTIMATE (CALCULATED) 29 mL/min/
[2018-06-30 16:11] LABS: AST (GOT) 182 IU/L (2-34); UREA NITROGEN (BUN) 17 mg/dL (9-23)
[2018-06-30 16:13] LABS: ALT (GPT) 64 IU/L (3-49)
[2018-06-30 16:42] LABS: QUANTITATIVE HCG < 4.0 MIU/ML
[2018-06-30 17:16] LABS: COMMENTS - BLOOD GASES A+C+; DEVICE 980; FI02 100 %; MECHANICAL RATE 16 resp/min; MODE AC; PEEP 5 CM/H20; SITE RR; TIDAL VOLUME 450 ML
[2018-06-30 17:17] LABS: BICARBONATE 25.2 mEq/L (22-26); CARBOXY HGB 3.6 % (0-5); METHEMOGLOBIN 1.1 % (0-1.5); PCO2 38 mm Hg (35-45); PO2 121 mm Hg (80-100); pH 7.43 (7.35-7.45)
[2018-06-30 17:55] LABS: APPEARANCE CLEAR ((CLEAR)); BILIRUBIN NEGATIVE; BLOOD LARGE; COLOR YELLOW ((YELLOW)); GLUCOSE (STRIP) NEGATIVE; KETONES 5; LEUKOCYTES NEGATIVE; NITRITE NEGATIVE; PROTEIN (STRIP) 30; SPECIFIC GRAVITY 1.012 (1.000-1.030); UROBILINOGEN 0.2 MG/DL (0.2-1.0)
[2018-06-30 18:03] LABS: BACTERIA RARE /HPF; EPITHELIAL CELLS RARE /HPF; HYALINE CASTS 20-30 /LPF; MUCUS TRACE /LPF; RED BLOOD CELLS 0-5 /HPF (0-5); UCUL ADDED? NO; WHITE BLOOD CELLS 0-5 /HPF (0-5)
[2018-06-30 18:24] LABS: CREATINE KINASE 12953 IU/L (1-294)
[2018-06-30 18:27] LABS: AMPHETAMINE NEGATIVE (500 ng/mL); BARBITURATES NEGATIVE (200 ng/mL); BENZODIAZEPINES NEGATIVE (150 ng/mL); BUPRENORPHINE NEGATIVE (10 ng/mL); COCAINE NEGATIVE (150 ng/mL); METHADONE NEGATIVE (200 ng/mL); METHAMPHETAMINE NEGATIVE (500 ng/mL); OPIATES (MORPHINE) PRESUMPTIVE POSITIVE (100 ng/mL); OXYCODONE PRESUMPTIVE POSITIVE (100 ng/mL); PHENCYCLIDINE NEGATIVE (25 ng/mL); PROPOXYPHENE NEGATIVE (300 ng/mL); THC CANNABINOIDS PRESUMPTIVE POSITIVE (50 ng/mL); TRICYCLIC ANTIDEPRESSANTS PRESUMPTIVE POSITIVE (300 ng/mL)
[2018-06-30 20:00] VITALS: BP 119/88
[2018-06-30 20:35] VITALS: BP 117/89
[2018-06-30 21:35] LABS: TRIGLYCERIDES 97 MG/DL (Normal: <150)
[2018-06-30 21:35] LABS: INTER. NORMALIZED RATIO 1.3
[2018-06-30 21:38] LABS: PTT 27.7 SEC (25-37)
[2018-06-30 22:00] VITALS: BP 133/98
[2018-07-01] VITALS (17 sets, daily range): BP systolic 104–164; BP diastolic 66–116
[2018-07-01 01:04] LABS: CHLORIDE 108 mEq/L (99-109); POTASSIUM 4.1 mEq/L (3.7-5.4); SODIUM 137 mEq/L (136-147)
[2018-07-01 01:06] LABS: GLUCOSE 169 mg/dL (70-99)
[2018-07-01 01:11] LABS: UREA NITROGEN (BUN) 14 mg/dL (9-23)
[2018-07-01 01:17] LABS: GFR ESTIMATE (CALCULATED) > 59 mL/min/
[2018-07-01 05:33] LABS: HEMATOCRIT 37.3 % (36.0-46.0); HEMOGLOBIN 11.6 G/DL (11.9-15.5); MCH 28.5 PG (29.0-34.0); MCHC 31.1 G/DL (30.0-36.0); MCV 91.6 FL (83-99); PLATELET COUNT 262 K/uL (156-360); RBC DIS.WIDTH-CV 15.3 % (11.8-14.6); RBC DIS.WIDTH-SD 51.4 % (39-53); RED BLOOD COUNT 4.07 M/uL (3.80-5.20); WHITE BLOOD COUNT 19.6 K/uL (4.1-10.2)
[2018-07-01 06:07] LABS: CHLORIDE 111 MEQ/L (99-109); CREATININE 0.9 MG/DL (0.6-1.3); GFR ESTIMATE (CALCULATED) > 59 mL/min/; GLUCOSE 135 mg/dL (70-99); MAGNESIUM 1.8 mg/dl (1.3-2.7); PHOSPHORUS 1.7 mg/dL (2.5-4.9); POTASSIUM 4.5 MEQ/L (3.7-5.4); SODIUM 139 MEQ/L (136-147); UREA NITROGEN (BUN) 13 mg/dL (9-23)
[2018-07-01 07:23] LABS: CREATINE KINASE 9242 IU/L (1-294)
[2018-07-01 09:36] LABS: THYROTROPIN (TSH) 0.23 MIU/L (0.4-5.5)
[2018-07-01 11:07] LABS: COMMENTS - BLOOD GASES A+C+; DEVICE VENT; FI02 90 %; MECHANICAL RATE 16 resp/min; MODE AC; PEEP 10 CM/H20; SITE RR; TIDAL VOLUME 500 ML; TOTAL RESP RATE 26 resp/min
[2018-07-01 11:08] LABS: BASE EXCESS -3.3 mEq/L (-3 to +3); BICARBONATE 19.9 mEq/L (22-26); CARBOXY HGB 1.2 % (0-5); METHEMOGLOBIN 1.1 % (0-1.5); O2 SATURATION (CALCULATED) 96.7 % (95-99); PCO2 30 mm Hg (35-45); PO2 131 mm Hg (80-100); pH 7.43 (7.35-7.45)
[2018-07-01] MEDS ORDERED: ADVAIR HFA120 INHALA IH (16:21)
[2018-07-01] MEDS ORDERED: RANITIDINE HCL300 MG PO (16:21)
[2018-07-01] MEDS ORDERED: ALPRAZOLAM1 MG PO (16:22)
[2018-07-01] MEDS ORDERED: VENTOLIN HFA18 GM IH (16:22)
[2018-07-01] MEDS ORDERED: VENLAFAXINE HC150 M1 PO (18:03)
[2018-07-01] MEDS ORDERED: LITHIUM CARBON300 M1 PO (18:04)
[2018-07-01] MEDS ORDERED: OXYMORPHONE HCL20 MG PO (18:05)
[2018-07-01] MEDS ORDERED: OXYCODONE HCL10 MG PO (18:05)
[2018-07-02] VITALS (15 sets, daily range): BP systolic 116–135; BP diastolic 77–95
[2018-07-02 05:11] LABS: BASE EXCESS -3.4 mEq/L (-3 to +3); BICARBONATE 19.5 mEq/L (22-26); CARBOXY HGB 1.2 % (0-5); METHEMOGLOBIN 0.7 % (0-1.5); O2 SATURATION (CALCULATED) 98.9 % (95-99); PCO2 28 mm Hg (35-45); PO2 106 mm Hg (80-100); SITE RR; pH 7.45 (7.35-7.45)
[2018-07-02 05:12] LABS: COMMENTS - BLOOD GASES C+A+; DEVICE VENTILATOR; FI02 40 %; MECHANICAL RATE 16 resp/min; MODE AC; PEEP 8 CM/H20; TIDAL VOLUME 450 ML; TOTAL RESP RATE 25 resp/min
[2018-07-02 05:55] LABS: CREATININE 0.8 MG/DL (0.6-1.3); GFR ESTIMATE (CALCULATED) > 59 mL/min/; GLUCOSE 168 mg/dL (70-99); UREA NITROGEN (BUN) 13 mg/dL (9-23)
[2018-07-02 05:56] LABS: CHLORIDE 123 MEQ/L (99-109); PHOSPHORUS < 1.0 mg/dL (2.5-4.9); POTASSIUM 3.5 MEQ/L (3.7-5.4); SODIUM 150 MEQ/L (136-147)
[2018-07-02 06:06] LABS: CREATINE KINASE 4019 IU/L (1-294)
[2018-07-02 07:28] LABS: HEMATOCRIT ND % (36.0-46.0); HEMOGLOBIN ND G/DL (11.9-15.5); MCH ND PG (29.0-34.0); MCHC ND G/DL (30.0-36.0); MCV ND FL (83-99); RBC DIS.WIDTH-SD ND % (39-53); RED BLOOD COUNT ND M/uL (3.80-5.20); WHITE BLOOD COUNT ND K/uL (4.1-10.2)
[2018-07-02 07:29] LABS: BASOPHIL (%) ND % (0-1); EOSINOPHIL (%) ND % (0-5); IMM.PLATELET FRACTION ND (1-7); LYMPHOCYTE (%) ND % (15-42); MONOCYTE (%) ND % (3-12); NEUTROPHIL (%) ND % (45-76); PLATELET COUNT ND K/uL (156-360); RBC DIS.WIDTH-CV ND % (11.8-14.6)
[2018-07-02 07:31] LABS: BASOPHIL COUNT ND K/uL (0-0.1); EOSINOPHIL COUNT ND K/uL (0-0.3); IMMATURE GRANULOCYTE (%) ND % (0.0-0.7); LYMPHOCYTE COUNT ND K/uL (1.0-2.8); MONOCYTE COUNT ND K/uL (0-0.8); NEUTROPHIL COUNT ND K/uL (1.8-6.4); NRBC (%) ND /100 WBC (0-0)
[2018-07-02 08:01] LABS: BASOPHIL (%) 0.4 % (0-1); BASOPHIL COUNT 0.1 K/uL (0-0.1); EOSINOPHIL (%) 0.1 % (0-5); HEMATOCRIT 35.2 % (36.0-46.0); HEMOGLOBIN 11.1 G/DL (11.9-15.5); IMMATURE GRANULOCYTE (%) 0.6 % (0.0-0.7); LYMPHOCYTE (%) 11.7 % (15-42); LYMPHOCYTE COUNT 2.3 K/uL (1.0-2.8); MCH 29.2 PG (29.0-34.0); MCHC 31.5 G/DL (30.0-36.0); MCV 92.6 FL (83-99); MONOCYTE (%) 10.7 % (3-12); MONOCYTE COUNT 2.1 K/uL (0-0.8); NEUTROPHIL (%) 76.5 % (45-76); NEUTROPHIL COUNT 14.8 K/uL (1.8-6.4); NRBC (%) 0.1 /100 WBC (0-0); RBC DIS.WIDTH-CV 15.7 % (11.8-14.6); RBC DIS.WIDTH-SD 53.1 % (39-53); WHITE BLOOD COUNT 19.3 K/uL (4.1-10.2)
[2018-07-02 08:38] LABS: PLAT.SUFFICIENCY DECREASED
[2018-07-02 08:44] LABS: PLATELET COUNT 161 K/uL (156-360)
[2018-07-02 21:13] LABS: CHLORIDE 124 MEQ/L (99-109); CREATININE 0.7 MG/DL (0.6-1.3); GFR ESTIMATE (CALCULATED) > 59 mL/min/; GLUCOSE 160 mg/dL (70-99); MAGNESIUM 1.7 mg/dl (1.3-2.7); SODIUM 153 MEQ/L (136-147); UREA NITROGEN (BUN) 14 mg/dL (9-23)
[2018-07-02 21:25] LABS: PHOSPHORUS 1.6 mg/dL (2.5-4.9)
[2018-07-03] VITALS (17 sets, daily range): BP systolic 95–120; BP diastolic 61–77
[2018-07-03 05:52] LABS: BASOPHIL (%) 0.4 % (0-1); BASOPHIL COUNT 0.1 K/uL (0-0.1); EOSINOPHIL (%) 0.7 % (0-5); EOSINOPHIL COUNT 0.1 K/uL (0-0.3); HEMATOCRIT 29.7 % (36.0-46.0); HEMOGLOBIN 9.1 G/DL (11.9-15.5); IMMATURE GRANULOCYTE (%) 0.7 % (0.0-0.7); LYMPHOCYTE (%) 16.6 % (15-42); LYMPHOCYTE COUNT 2.3 K/uL (1.0-2.8); MCH 28.6 PG (29.0-34.0); MCHC 30.6 G/DL (30.0-36.0); MCV 93.4 FL (83-99); MONOCYTE (%) 11.4 % (3-12); MONOCYTE COUNT 1.6 K/uL (0-0.8); NEUTROPHIL (%) 70.2 % (45-76); NEUTROPHIL COUNT 9.5 K/uL (1.8-6.4); NRBC (%) 0.1 /100 WBC (0-0); PLATELET COUNT 124 K/uL (156-360); RBC DIS.WIDTH-CV 15.8 % (11.8-14.6); RBC DIS.WIDTH-SD 54.1 % (39-53); RED BLOOD COUNT 3.18 M/uL (3.80-5.20); WHITE BLOOD COUNT 13.6 K/uL (4.1-10.2)
[2018-07-03 06:14] LABS: CHLORIDE 128 MEQ/L (99-109); CREATININE 0.7 MG/DL (0.6-1.3); GFR ESTIMATE (CALCULATED) > 59 mL/min/; GLUCOSE 129 mg/dL (70-99); MAGNESIUM 1.7 mg/dl (1.3-2.7); POTASSIUM 3.6 MEQ/L (3.7-5.4); SODIUM 156 MEQ/L (136-147); UREA NITROGEN (BUN) 13 mg/dL (9-23)
[2018-07-03 06:56] LABS: CREATINE KINASE 1233 IU/L (1-294); PHOSPHORUS 2.8 mg/dL (2.5-4.9)
[2018-07-03 18:54] LABS: HEMATOCRIT 29.1 % (36.0-46.0); HEMOGLOBIN 9.2 G/DL (11.9-15.5); MCH 29.4 PG (29.0-34.0); MCHC 31.6 G/DL (30.0-36.0); NRBC (%) 0.1 /100 WBC (0-0); PLATELET COUNT 114 K/uL (156-360); RBC DIS.WIDTH-CV 16.2 % (11.8-14.6); RBC DIS.WIDTH-SD 54.9 % (39-53); RED BLOOD COUNT 3.13 M/uL (3.80-5.20); WHITE BLOOD COUNT 14.2 K/uL (4.1-10.2)
[2018-07-03 19:07] LABS: POTASSIUM 3.3 mEq/L (3.7-5.4); SODIUM 153 mEq/L (136-147)
[2018-07-03 19:09] LABS: GLUCOSE 150 mg/dL (70-99)
[2018-07-03 19:12] LABS: CREATININE 0.7 mg/dL (0.6-1.3); GFR ESTIMATE (CALCULATED) > 59 mL/min/
[2018-07-03 19:13] LABS: UREA NITROGEN (BUN) 20 mg/dL (9-23)
[2018-07-03 19:14] LABS: CHLORIDE 126 mEq/L (99-109)
[2018-07-04] VITALS (24 sets, daily range): BP systolic 104–134; BP diastolic 62–83
[2018-07-04 05:14] LABS: BASOPHIL (%) 0.3 % (0-1); EOSINOPHIL (%) 1.8 % (0-5); EOSINOPHIL COUNT 0.2 K/uL (0-0.3); HEMATOCRIT 29.3 % (36.0-46.0); IMMATURE GRANULOCYTE (%) 0.6 % (0.0-0.7); LYMPHOCYTE COUNT 2.2 K/uL (1.0-2.8); MCH 28.8 PG (29.0-34.0); MCHC 30.7 G/DL (30.0-36.0); MCV 93.6 FL (83-99); MONOCYTE (%) 8.7 % (3-12); MONOCYTE COUNT 1.2 K/uL (0-0.8); NEUTROPHIL (%) 72.6 % (45-76); NEUTROPHIL COUNT 9.8 K/uL (1.8-6.4); NRBC (%) 0.1 /100 WBC (0-0); PLATELET COUNT 112 K/uL (156-360); RBC DIS.WIDTH-CV 16.2 % (11.8-14.6); RBC DIS.WIDTH-SD 55.4 % (39-53); RED BLOOD COUNT 3.13 M/uL (3.80-5.20); WHITE BLOOD COUNT 13.5 K/uL (4.1-10.2)
[2018-07-04 06:18] LABS: CHLORIDE 126 MEQ/L (99-109); CREATINE KINASE 719 IU/L (1-294); CREATININE 0.7 MG/DL (0.6-1.3); GFR ESTIMATE (CALCULATED) > 59 mL/min/; GLUCOSE 151 mg/dL (70-99); PHOSPHORUS 2.6 mg/dL (2.5-4.9); POTASSIUM 3.9 MEQ/L (3.7-5.4); SODIUM 156 MEQ/L (136-147); UREA NITROGEN (BUN) 20 mg/dL (9-23)
[2018-07-04 18:46] LABS: CHLORIDE 122 MEQ/L (99-109); CREATININE 0.8 MG/DL (0.6-1.3); GFR ESTIMATE (CALCULATED) > 59 mL/min/; GLUCOSE 142 mg/dL (70-99); POTASSIUM 3.6 MEQ/L (3.7-5.4); SODIUM 155 MEQ/L (136-147); UREA NITROGEN (BUN) 21 mg/dL (9-23)
[2018-07-04 22:01] LABS: SITE RR
[2018-07-04 22:02] LABS: BASE EXCESS 1.9 mEq/L (-3 to +3); BICARBONATE 25.1 mEq/L (22-26); CARBOXY HGB 1.5 % (0-5); COMMENTS - BLOOD GASES C+; DEVICE VENT; FI02 30 %; MECHANICAL RATE 16 resp/min; MODE A/C; PCO2 33 mm Hg (35-45); PEEP 5 CM/H20; PO2 70 mm Hg (80-100); TIDAL VOLUME 450 ML; TOTAL RESP RATE 29 resp/min; pH 7.49 (7.35-7.45)
[2018-07-05] VITALS (15 sets, daily range): BP systolic 106–136; BP diastolic 66–82
[2018-07-05 05:17] LABS: BASOPHIL (%) 0.3 % (0-1); EOSINOPHIL (%) 2.6 % (0-5); EOSINOPHIL COUNT 0.3 K/uL (0-0.3); HEMATOCRIT 29.6 % (36.0-46.0); HEMOGLOBIN 9.1 G/DL (11.9-15.5); IMMATURE GRANULOCYTE (%) 0.8 % (0.0-0.7); LYMPHOCYTE (%) 19.4 % (15-42); LYMPHOCYTE COUNT 2.3 K/uL (1.0-2.8); MCH 28.5 PG (29.0-34.0); MCHC 30.7 G/DL (30.0-36.0); MCV 92.8 FL (83-99); MONOCYTE (%) 11.1 % (3-12); MONOCYTE COUNT 1.3 K/uL (0-0.8); NEUTROPHIL (%) 65.8 % (45-76); NEUTROPHIL COUNT 7.8 K/uL (1.8-6.4); NRBC (%) 0.2 /100 WBC (0-0); PLATELET COUNT 126 K/uL (156-360); RBC DIS.WIDTH-CV 16.5 % (11.8-14.6); RBC DIS.WIDTH-SD 55.7 % (39-53); RED BLOOD COUNT 3.19 M/uL (3.80-5.20); WHITE BLOOD COUNT 11.9 K/uL (4.1-10.2)
[2018-07-05 06:04] LABS: CHLORIDE 123 MEQ/L (99-109); CREATINE KINASE 363 IU/L (1-294); CREATININE 0.7 MG/DL (0.6-1.3); GFR ESTIMATE (CALCULATED) > 59 mL/min/; GLUCOSE 120 mg/dL (70-99); MAGNESIUM 1.9 mg/dl (1.3-2.7); POTASSIUM 3.7 MEQ/L (3.7-5.4); SODIUM 155 MEQ/L (136-147); UREA NITROGEN (BUN) 24 mg/dL (9-23)
[2018-07-05 06:08] LABS: PHOSPHORUS 3.8 mg/dL (2.5-4.9)
[2018-07-05 13:45] LABS: Heparin Induced Plt Ab Negative (Negative)
[2018-07-05 14:16] LABS: CHLORIDE 120 MEQ/L (99-109); CREATININE 0.7 MG/DL (0.6-1.3); GFR ESTIMATE (CALCULATED) > 59 mL/min/; GLUCOSE 157 mg/dL (70-99); PHOSPHORUS 3.9 mg/dL (2.5-4.9); POTASSIUM 3.9 MEQ/L (3.7-5.4); SODIUM 155 MEQ/L (136-147); UREA NITROGEN (BUN) 24 mg/dL (9-23)
[2018-07-05 14:18] LABS: MAGNESIUM 2.3 mg/dl (1.3-2.7)
[2018-07-06] VITALS (20 sets, daily range): BP systolic 104–160; BP diastolic 61–97
[2018-07-06 05:41] LABS: COMMENTS - BLOOD GASES C+; DEVICE VENT; FI02 40 %; MECHANICAL RATE 16 resp/min; MODE AC; PEEP 5 CM/H20; SITE RR; TIDAL VOLUME 450 ML; TOTAL RESP RATE 19 resp/min
[2018-07-06 05:42] LABS: BASE EXCESS 2.4 mEq/L (-3 to +3); BICARBONATE 27.2 mEq/L (22-26); CARBOXY HGB 1.4 % (0-5); METHEMOGLOBIN 0.8 % (0-1.5); PCO2 42 mm Hg (35-45); PO2 99 mm Hg (80-100); pH 7.42 (7.35-7.45)
[2018-07-06 06:12] LABS: ALBUMIN 2.4 G/DL (3.2-4.8); ALKALINE PHOSPHATASE 55 IU/L (3-129); ALT (GPT) 33 IU/L (3-49); AST (GOT) 28 IU/L (2-34); CHLORIDE 120 MEQ/L (99-109); CREATINE KINASE 328 IU/L (1-294); CREATININE 0.6 MG/DL (0.6-1.3); GFR ESTIMATE (CALCULATED) > 59 mL/min/; GLUCOSE 123 mg/dL (70-99); MAGNESIUM 2.3 mg/dl (1.3-2.7); POTASSIUM 3.7 MEQ/L (3.7-5.4); SODIUM 154 MEQ/L (136-147); TOTAL BILIRUBIN 0.3 MG/DL (0.0-1.0); TOTAL PROTEIN 5.2 G/DL (6.4-8.3); UREA NITROGEN (BUN) 26 mg/dL (9-23)
[2018-07-06 09:28] LABS: UFH SRA Result Negative (Negative)
[2018-07-06 12:13] LABS: BASOPHIL (%) 0.4 % (0-1); BASOPHIL COUNT 0.1 K/uL (0-0.1); EOSINOPHIL (%) 2.4 % (0-5); EOSINOPHIL COUNT 0.4 K/uL (0-0.3); HEMOGLOBIN 9.6 G/DL (11.9-15.5); IMMATURE GRANULOCYTE (%) 0.7 % (0.0-0.7); LYMPHOCYTE (%) 9.4 % (15-42); LYMPHOCYTE COUNT 1.5 K/uL (1.0-2.8); MCH 28.4 PG (29.0-34.0); MCV 94.7 FL (83-99); MONOCYTE (%) 7.4 % (3-12); MONOCYTE COUNT 1.2 K/uL (0-0.8); NEUTROPHIL (%) 79.7 % (45-76); NEUTROPHIL COUNT 12.9 K/uL (1.8-6.4); RBC DIS.WIDTH-CV 16.5 % (11.8-14.6); RBC DIS.WIDTH-SD 56.5 % (39-53); RED BLOOD COUNT 3.38 M/uL (3.80-5.20); WHITE BLOOD COUNT 16.2 K/uL (4.1-10.2)
[2018-07-06 12:14] LABS: PLATELET COUNT 168 K/uL (156-360)
[2018-07-06 12:45] LABS: CHLORIDE 117 MEQ/L (99-109); CREATININE 0.7 MG/DL (0.6-1.3); GFR ESTIMATE (CALCULATED) > 59 mL/min/; GLUCOSE 179 mg/dL (70-99); MAGNESIUM 2.2 mg/dl (1.3-2.7); POTASSIUM 3.8 MEQ/L (3.7-5.4); SODIUM 152 MEQ/L (136-147); UREA NITROGEN (BUN) 27 mg/dL (9-23)
[2018-07-06 12:46] LABS: PHOSPHORUS 2.5 mg/dL (2.5-4.9)
[2018-07-07] VITALS (20 sets, daily range): BP systolic 95–159; BP diastolic 58–99
[2018-07-08] VITALS (8 sets, daily range): BP systolic 108–151; BP diastolic 68–95
[2018-07-08 07:04] LABS: HEMATOCRIT 34.8 % (36.0-46.0); HEMOGLOBIN 10.6 G/DL (11.9-15.5); MCH 28.6 PG (29.0-34.0); MCHC 30.5 G/DL (30.0-36.0); MCV 93.8 FL (83-99); RBC DIS.WIDTH-CV 15.5 % (11.8-14.6); RBC DIS.WIDTH-SD 53.1 % (39-53); RED BLOOD COUNT 3.71 M/uL (3.80-5.20); WHITE BLOOD COUNT 13.9 K/uL (4.1-10.2)
[2018-07-08 07:07] LABS: PLATELET COUNT 286 K/uL (156-360)
[2018-07-08 07:51] LABS: CHLORIDE 119 MEQ/L (99-109); CREATININE 0.7 MG/DL (0.6-1.3); GFR ESTIMATE (CALCULATED) > 59 mL/min/; POTASSIUM 3.5 MEQ/L (3.7-5.4); SODIUM 152 MEQ/L (136-147); UREA NITROGEN (BUN) 25 mg/dL (9-23)
[2018-07-08 07:53] LABS: GLUCOSE 102 mg/dL (70-99)
[2018-07-09] VITALS (8 sets, daily range): BP systolic 118–148; BP diastolic 58–96
[2018-07-09 09:04] LABS: CHLORIDE 117 MEQ/L (99-109); CREATININE 0.6 MG/DL (0.6-1.3); GFR ESTIMATE (CALCULATED) > 59 mL/min/; GLUCOSE 105 mg/dL (70-99); POTASSIUM 3.7 MEQ/L (3.7-5.4); SODIUM 150 MEQ/L (136-147); UREA NITROGEN (BUN) 14 mg/dL (9-23)
[2018-07-10 01:05] LABS: ALBUMIN 3.3 g/dL (3.2-4.8); CHLORIDE 116 mEq/L (99-109); POTASSIUM 3.3 mEq/L (3.7-5.4); SODIUM 147 mEq/L (136-147)
[2018-07-10 01:07] LABS: TOTAL PROTEIN 7.5 g/dL (6.4-8.3)
[2018-07-10 01:09] LABS: TOTAL BILIRUBIN 0.5 mg/dL (0.0-1.0)
[2018-07-10 01:11] LABS: GFR ESTIMATE (CALCULATED) > 59 mL/min/
[2018-07-10 01:14] LABS: ALT (GPT) 139 IU/L (3-49); LIPASE 13 U/L (1.0-51.0)
[2018-07-10 01:18] LABS: TROP-I INTERPRETATION NEGATIVE; TROPONIN-I 0.06 ng/mL (0.0-0.30)
[2018-07-10 01:24] LABS: GLUCOSE 107 mg/dL (70-99)
[2018-07-10 01:27] LABS: ALKALINE PHOSPHATASE 95 IU/L (3-129); CREATININE 0.7 mg/dL (0.6-1.3)
[2018-07-10 01:28] LABS: UREA NITROGEN (BUN) 12 mg/dL (9-23)
[2018-07-10 01:29] LABS: AST (GOT) 81 IU/L (2-34)
[2018-07-10 04:13] VITALS: BP 141/83
[2018-07-10 05:03] LABS: HEMOGLOBIN 10.5 G/DL (11.9-15.5); MCH 28.8 PG (29.0-34.0); MCHC 30.9 G/DL (30.0-36.0); MCV 93.2 FL (83-99); PLATELET COUNT 336 K/uL (156-360); RBC DIS.WIDTH-CV 15.5 % (11.8-14.6); RBC DIS.WIDTH-SD 51.9 % (39-53); RED BLOOD COUNT 3.65 M/uL (3.80-5.20); WHITE BLOOD COUNT 12.8 K/uL (4.1-10.2)
[2018-07-10 05:25] LABS: CHLORIDE 118 mEq/L (99-109); POTASSIUM 3.5 mEq/L (3.7-5.4); SODIUM 150 mEq/L (136-147)
[2018-07-10 05:27] LABS: GLUCOSE 107 mg/dL (70-99)
[2018-07-10 05:31] LABS: CREATININE 0.7 mg/dL (0.6-1.3); GFR ESTIMATE (CALCULATED) > 59 mL/min/
[2018-07-10 05:32] LABS: UREA NITROGEN (BUN) 11 mg/dL (9-23)
[2018-07-10 08:14] VITALS: BP 164/82
[2018-07-10 11:26] VITALS: BP 147/79
[2018-07-10 15:42] VITALS: BP 160/73
[2018-07-10 21:09] VITALS: BP 160/77
[2018-07-11 00:10] VITALS: BP 132/62
[2018-07-11 03:26] LABS: ALBUMIN 3.2 g/dL (3.2-4.8)
[2018-07-11 03:27] LABS: CHLORIDE 111 mEq/L (99-109); POTASSIUM 3.2 mEq/L (3.7-5.4)
[2018-07-11 03:29] LABS: GLUCOSE 85 mg/dL (70-99); TOTAL PROTEIN 6.8 g/dL (6.4-8.3)
[2018-07-11 03:31] LABS: TOTAL BILIRUBIN 0.4 mg/dL (0.0-1.0)
[2018-07-11 03:32] LABS: ALKALINE PHOSPHATASE 93 IU/L (3-129)
[2018-07-11 03:33] LABS: CREATININE 0.7 mg/dL (0.6-1.3); GFR ESTIMATE (CALCULATED) > 59 mL/min/
[2018-07-11 03:34] LABS: AST (GOT) 46 IU/L (2-34); UREA NITROGEN (BUN) 12 mg/dL (9-23)
[2018-07-11 03:35] LABS: SODIUM 141 mEq/L (136-147)
[2018-07-11 03:36] LABS: ALT (GPT) 116 IU/L (3-49)
[2018-07-11 04:11] VITALS: BP 130/63
[2018-07-11 07:38] VITALS: BP 130/73
[2018-07-11 15:53] LABS: INTER. NORMALIZED RATIO 1.6
[2018-07-11 16:16] VITALS: BP 140/87
[2018-07-11 19:49] VITALS: BP 131/63
[2018-07-11 23:44] VITALS: BP 151/69
[2018-07-12 04:43] VITALS: BP 129/69
[2018-07-12 06:29] LABS: INTER. NORMALIZED RATIO 1.6
[2018-07-12 06:32] LABS: PTT 99.6 SEC (25-37)
[2018-07-12 08:09] VITALS: BP 124/68
[2018-07-12 11:00] VITALS: BP 124/61
[2018-07-12 15:58] VITALS: BP 145/85
[2018-07-12 20:03] VITALS: BP 123/79
[2018-07-13 00:04] VITALS: BP 115/56
[2018-07-13 04:06] VITALS: BP 140/85
[2018-07-13 05:37] LABS: BASOPHIL (%) 0.5 % (0-1); BASOPHIL COUNT 0.1 K/uL (0-0.1); EOSINOPHIL (%) 5.4 % (0-5); EOSINOPHIL COUNT 0.5 K/uL (0-0.3); HEMOGLOBIN 10.3 G/DL (11.9-15.5); IMMATURE GRANULOCYTE (%) 1.2 % (0.0-0.7); LYMPHOCYTE (%) 27.9 % (15-42); LYMPHOCYTE COUNT 2.6 K/uL (1.0-2.8); MCH 28.9 PG (29.0-34.0); MCHC 31.2 G/DL (30.0-36.0); MCV 92.4 FL (83-99); MONOCYTE (%) 9.4 % (3-12); MONOCYTE COUNT 0.9 K/uL (0-0.8); NEUTROPHIL (%) 55.6 % (45-76); NEUTROPHIL COUNT 5.2 K/uL (1.8-6.4); PLATELET COUNT 364 K/uL (156-360); RBC DIS.WIDTH-SD 50.5 % (39-53); RED BLOOD COUNT 3.57 M/uL (3.80-5.20); WHITE BLOOD COUNT 9.4 K/uL (4.1-10.2)
[2018-07-13 05:43] LABS: INTER. NORMALIZED RATIO 2.6
[2018-07-13 08:12] VITALS: BP 129/83
[2018-07-13 11:43] VITALS: BP 123/87
[2018-07-13] MEDS ORDERED: COUMADIN2.5 MG PO (13:00)
[2018-07-13] MEDS ORDERED: SEROQUEL12.5 MG PO (13:00)
[2018-07-13 13:28] LABS: INTER. NORMALIZED RATIO 2.9
[2018-07-13 13:31] LABS: PTT 101.9 SEC (25-37)
== END 2018-07-13 13:49 | disposition home or self-care (01) | DRG 917 ==
LOC: EME 14:51 → 4WEST 19:49 → EDOF 19:49 → ENRESERV 19:50 → 4WEST 20:32 → ENRESERV 07-08 06:09 → 3EAST 07-08 07:40
PROVIDERS: Emergency Medicine; Hospitalist; Internal Medicine; Specialist; Surgery
PROC: 5A1955Z Respiratory Ventilation, Greater than 96 Consecutive Hours (ICD-10-PCS; principal; 2018-06-30)
PROC: 0BH17EZ Insertion of Endotracheal Airway into Trachea, Via Natural or Artificial Opening (ICD-10-PCS; principal; 2018-06-30)
DX: T40.2X1A Poisoning by other opioids, accidental (unintentional), initial encounter (principal); J96.00 Acute respiratory failure, unspecified whether with hypoxia or hypercapnia; J69.0 Pneumonitis due to inhalation of food and vomit; J14 Pneumonia due to Hemophilus influenzae; J44.0 Chronic obstructive pulmonary disease with (acute) lower respiratory infection; M62.82 Rhabdomyolysis; G83.89 Other specified paralytic syndromes; I82.412 Acute embolism and thrombosis of left femoral vein; I26.99 Other pulmonary embolism without acute cor pulmonale; G92 Toxic encephalopathy; N17.9 Acute kidney failure, unspecified; D69.6 Thrombocytopenia, unspecified; E87.0 Hyperosmolality and hypernatremia; K75.89 Other specified inflammatory liver diseases; Z78.1 Physical restraint status; I67.82 Cerebral ischemia; E87.70 Fluid overload, unspecified; F11.259 Opioid dependence with opioid-induced psychotic disorder, unspecified; G89.4 Chronic pain syndrome; F31.9 Bipolar disorder, unspecified; I10 Essential (primary) hypertension; F20.9 Schizophrenia, unspecified; E66.9 Obesity, unspecified; Z68.35 Body mass index [BMI] 35.0-35.9, adult; M21.372 Foot drop, left foot; K21.9 Gastro-esophageal reflux disease without esophagitis; E78.5 Hyperlipidemia, unspecified; K44.9 Diaphragmatic hernia without obstruction or gangrene; F41.9 Anxiety disorder, unspecified; D64.9 Anemia, unspecified; F12.90 Cannabis use, unspecified, uncomplicated; F17.210 Nicotine dependence, cigarettes, uncomplicated; Z86.73 Personal history of transient ischemic attack (TIA), and cerebral infarction without residual deficits; Z87.11 Personal history of peptic ulcer disease; Z90.49 Acquired absence of other specified parts of digestive tract; Z82.49 Family history of ischemic heart disease and other diseases of the circulatory system
CPT/HCPCS: 36600; 70450; 71045; 71275; 74174; 80048; 80048 91; 80053; 80178; 80202; 81003; 82330; 82550; 83605; 83690; 83735; 83880; 84100; 84439; 84443; 84478; 84484; 84702; 84999; 85025; 85025 91; 85027; 85379; 85610; 85730; 86022 90; 87040; 87070; 87077; 87086; 87103; 87181; 87185; 87205; 87641; 87801; 93005; 93306; 93970; 94002; 94003; 94640; 94760; 94799; 99281; 99285; C1753; C9113; G0480; J0330; J0692; J1200; J1630; J1644; J1652; J1885; J1940; J2060; J2250; J2270; J2543; J2704; J3010; J3370; J3475; J3480; J7030; J7040; J7050; J7120; S0028